=== PATIENT | female | born 1955 | race Caucasian/White ===

== ENCOUNTER 2017-01-25 16:43 | Inpatient (IN) | payer BC ==
--- NOTE | ~2017-01-25 | CN ---
Consultation Report [facility] [address] [place]. [address] NAME: SHANE CALVIN : 57 STATUS : ADM IN PAT#: [id number] AGE: 61 ADM/REG DATE : 01/25/17 MR#: [id number] REPORT SERV DATE: 01/26/17 DICTATED BY: VINNY FIGUEROA DATE: 01/26/17 REPORT STATUS : Draft TRANSCRIBED BY: MODL DATE: 01/26/17 SURGICAL CONSULTATION DATE OF CONSULTATION: 01/26/2017 REQUESTING PHYSICIAN: Hospitalist Service/Blair De Luna M.D. CONSULTING PHYSICIAN: Vinny Figueroa M.D. REASON FOR REQUEST: Assistance with Crohn's enteritis. HISTORY: This is a 61-year-old white female, with a recent presumptive diagnosis of Crohn's ileitis. For about five to six months, she has had increasing problems with digestion, that is evidenced by bloating, distention, and small vomiting episodes. She has modified her diet significantly to small quantities of bland foods. She subsequently lost approximately 30 pounds. Over this time, she has been managed and evaluated by Dr. De Luna, with imaging studies in fact in August of 2016, she had a colonoscopy. Dr. De Luna could not pass the stricture at the ileocecal valve, due to narrowing. Biopsies did not show inflammatory bowel disease. Blood panel for IBD was inconclusive. Although, because of this, she was started on Crohn's therapy. She has had CT scanning that showed a narrowing segment of the ileocecal area with mild distention. The patient last week was started on Humira as an induction dose by Dr. De Luna, but then she became worse with increasing abdominal pain and vomiting. She called Dr. De Luna's office and was told to come to the ED. A CT scan without contrast showed small bowel obstruction, probably due to the locally inflamed segment of small bowel. While hospitalized, she has been seen by Hospitalist Service and Dr. De Luna's service and the decision was made to go with high-dose IV steroids consisting of Solu-Medrol and just proceed with MR enterography. PHYSICAL EXAMINATION: GENERAL: The patient is alert, and conversant. ABDOMEN: The abdomen shows neip-[id number] distention with some mild discomfort to palpation, but no real guarding or peritonitis. She has well-healed cholecystectomy scars. No evidence of abdominal wall hernia. IMPRESSION: Partial recurrent small bowel obstruction, secondary to Crohn's enteritis, with probable stricturing, and stenosis of the ileocecal region. PLAN: I agree with aggressive medical management at this time and continuing evaluation with CT enterography. Also, I agree with the IV Solu-Medrol. If she does not respond adequately to medical and nonsurgical management. She may require resection of the strictured segment at some point in the future. Consultation Report [address] [place]. [address] NAME: SHANE CALVIN SAMPLES : 56 STATUS : ADM IN PAT#: [id number] AGE: 61 ADM/REG DATE : 01/25/17 MR#: [id number] REPORT SERV DATE: 01/26/17 DICTATED BY: VINNY FIGUEROA DATE: 01/26/17 REPORT STATUS : Draft TRANSCRIBED BY: JEROD DATE: 01/26/17 Thank very much for this consultation. REMY/JEROD Vinny Figueroa M.D. / [id number] CC: Cynthia Parra M.D.
--- NOTE | ~2017-01-25 | DS ---
Discharge Summary [facility] [address] [place]. [address] NAME: SHANE CALVIN : 57 STATUS : ADM IN [facility]#: [id number] AGE: 61 ADM/REG DATE : 01/25/17 MR#: [id number] REPORT SERV DATE: 02/01/17 DICTATED BY: CARMEN BILLS DATE: 02/01/17 REPORT STATUS : Draft TRANSCRIBED BY: MODL DATE: 02/01/17 ADMISSION DATE: 01/25/2017 DISCHARGE DATE: 02/01/2017 DIAGNOSES ON ADMISSION: 1. Crohn disease exacerbation, possible gastroparesis. 2. Acute kidney injury. 3. Hypokalemia. DIAGNOSES ON DISCHARGE: 1. Crohn disease exacerbation, currently resolved. 2. Nausea and vomiting, resolved. No evidence of gastroparesis. 3. Partial small-bowel obstruction, resolved with IV steroid treatment for Crohn disease. 4. Hypokalemia, resolved. 5. Mild acute kidney injury present on admission, resolved with IV fluid hydration. 6. Hypertension, controlled. 7. Mild C. diff diarrhea, currently improved. Doing very well. CONSULTANTS ON THE CASE: Clerical Proofreader Maksim, Dr. Cloud as well as General Surgery, Dr. Casas. IMAGING STUDIES: Done during this hospitalization: CT of the abdomen and pelvis without contrast done on 01/25/2017 showed small-bowel obstruction secondary to some locally inflamed bowel segment on image 125. May wish to consider an MRI enterography for definition of the inflamed segment. MRI abdomen enterography done on 01/27/2017 showed abnormal narrowed and thick-walled enhancing loops for mid jejunum consistent with involvement by Crohn disease involving approximately 20 cm of mid jejunum with small-bowel obstruction above this level. No additional lesions visualized. Trace fluid surrounding the dilated loop of bowel. X-ray KUB 01/29/2017, decreased intestinal gas compared to previous study. HISTORY OF PRESENT ILLNESS: Briefly, this is a very pleasant 61-year-old female with a past medical history of Crohn disease, presented with nausea, vomiting, abdominal pain, Crohn's exacerbation and was found to have small-bowel obstruction. For details, see history of present illness dictated by Dr. Parekh on 01/26/2017. HOSPITAL COURSE: Briefly, the patient was admitted to the hospital per Dr. Parekh and she was started on IV fluids, and General Surgery was consulted with a concern for the small-bowel obstruction as well as the patient was on antibiotics started per Dr. Parekh. The patient was found to have a narrowed bowel on the MRI enterography. See the results above. She was started on IV steroids per Maksim TAN and also her diet was slowly advanced. Discharge Summary [facility] [id number] [place]. [address] NAME: SHANE CALVIN : 57 STATUS : ADM IN PAT#: [id number] AGE: 61 ADM/REG DATE : 01/25/17 MR#: [id number] REPORT SERV DATE: 02/01/17 DICTATED BY: CARMEN BILLS DATE: 02/01/17 REPORT STATUS : Draft TRANSCRIBED BY: JEROD DATE: 02/01/17 The patient's small-bowel obstruction resolved on IV steroids. She is able to tolerate food and drink. There was a question if she needs to have surgery for her Crohn disease, but she also developed during this hospitalization mild C. diff diarrhea, which should be treated before she will be evaluated by Dr. Casas again if she needs surgery. Right now, her diarrhea improved. She does not have any significant diarrhea. She does not have any abdominal pain. No nausea and no vomiting. Her hypokalemia resolved. Her potassium, in the normal range for the last three days, without any replacement, and potassium level today is 4.1, doing well. She was recommended to be discharged per Gastroenterology and per Dr. Casas and per ct. She will follow up with her primary care physician, Dr. Rapp in a week, and she can check her potassium level with Dr. Angel Rapp as well. As well as she will follow up with Dr. De Luna, blacksmith assistant in four weeks and with Dr. Casas in two weeks. She is given prescription for vancomycin 125 mg p.o. four times daily for two weeks, as well as a prescription for tapering course of prednisone per Maksim, nurse practitioner of blacksmith assistant Dr. De Luna. She will take 40 mg daily for seven days. Then, 20 mg daily for seven days. Then, she will take 40 mg p.o. daily for seven days. Then, she will take 20 mg daily for seven days. Then, she will take 10 mg daily for seven days. Then, she will take 10 mg p.o. every other day for seven days according to the prescription, as well as vancomycin 125 p.o. four times daily for two weeks. She was recommended to increase her Norvasc to 10 mg a day while she is on steroids. Aspirin 81 mg daily, lisinopril 40 mg daily, mesalamine 1000 mg three times a day. Patient to stop Protonix. Patient to stop Humira. Continue her Zofran as needed for nausea and hyoscyamine 0.25 p.o. q.4 hours p.r.n. for abdominal cramps. Patient was discharged in stable condition. Every question was answered to the patient. I spent 45 minutes on discharge. MG/MODL Carmen Bills M.D. / [id number] CC: Cynthia Parra M.D. James Scott Manton, M.D. Walter Rose, M.D.
--- NOTE | ~2017-01-25 | HP ---
History And Physical [facility] [id number] [facility] [place]. [address] NAME: SHANE CALVIN : 57 STATUS : ADM IN PAT#: [id number] AGE: 61 ADM/REG DATE : 01/25/17 MR#: [id number] REPORT SERV DATE: 01/26/17 DICTATED BY: JENIFFER ONTIVEROS DATE: 01/25/17 REPORT STATUS : Draft TRANSCRIBED BY: MODL DATE: 01/25/17 DATE OF ADMISSION: 01/25/2017 CHIEF COMPLAINT: A 61-year-old female with presumptive Crohn's disease, now on steroids, Pentasa, and Humira, but presenting with increasing abdominal pain and vomiting. HISTORY OF PRESENTING ILLNESS: The patient's history was obtained through careful interview with the patient and sister coupled with review of [facility] medical records. The patient has had a very poor clinical course since about 09/09 when she had lost a total of 30 pounds. Her main complaints have been abdominal pain and vomiting. She has been given a presumptive diagnosis of Crohn's disease because it runs in her family, but she has been told that she has "negative" bowel biopsies and was also told she had "negative" antibodies? But just a week ago, she had Humira added to her chronic Pentasa and steroids. For two weeks prior to initiation of Humira, the patient was out on Augmentin. But over these last days eight or nine days, she has been having worsening illness with intractable nausea, vomiting, and abdominal pain. She describes her abdominal pain as epigastric area without too much radiation, a "squeezing" discomfort, 7/10 severity. No bright red blood per rectum. No melena. She has had slight diarrhea. She has subjective fevers, chills, and night sweats, a measured temperature up to 99.8. Often when she eats food, she has a postprandial "knot" in her upper abdomen as if the food is not moving through her stomach as she describes it. No lightheadedness. No shortness of breath. No chest pain. REVIEW OF SYSTEMS: Otherwise, a 14-point review of systems was obtained and was negative. PAST MEDICAL HISTORY: 1. Presumptive Crohn's disease, followed by Dr. De Luna. 2. Diabetes, off medications now. 3. Hypertension. 4. Elevated cholesterol. 5. E coli bacteremia in 2016. PAST SURGICAL HISTORY: History And Physical [facility] [address] [facility] [place]. [address] NAME: SHANE CALVIN : 57 STATUS : ADM IN PAT#: [id number] AGE: 61 ADM/REG DATE : 01/25/17 MR#: [id number] REPORT SERV DATE: 01/26/17 DICTATED BY: JENIFFER ONTIVEROS DATE: 01/25/17 REPORT STATUS : Draft TRANSCRIBED BY: JEROD DATE: 01/25/[address] Casas. 2. . ALLERGIES: SULFA, FLUOROQUINOLONES, ALDARA. SOCIAL HISTORY: No tobacco abuse. Occasional alcohol use. Lives in [place], [place]. Lives alone, but has a sister, who lives close, and two children, one lives locally and another child lives in [place], [place]. FAMILY HISTORY: Son with Crohn's disease. A strong family history of diabetes and heart disease. CURRENT MEDICATIONS: Include Humira, first dose one week ago; Norvasc 5 mg p.o. daily; aspirin 81 mg p.o. daily; Entocort 9 mg p.o. daily; Anaspaz 0.125 mg p.o. q.4 hours p.r.n.; lisinopril 40 mg p.o. daily; Pentasa 1000 mg p.o. t.i.d.; Zofran p.r.n.; Protonix 40 mg p.o. daily. PHYSICAL EXAMINATION: VITAL SIGNS: Temperature 98.9, pulse 101, blood pressure 114/60, respiratory rate 16, O2 saturation 99% on room air. GENERAL: Pleasant, cooperative female. She is not in very much distress right now. Her main complaint is nausea. HEENT: Pupils equal, round, and reactive to light. No conjunctival pallor. No scleral icterus. Nares are patent. Oropharynx is clear of obstruction. Very dry mucous membranes. NECK: Trachea midline. No thyromegaly. LYMPH: No cervical lymphadenopathy. No supraclavicular lymphadenopathy. No inguinal lymphadenopathy. RESPIRATORY: Clear to auscultation at bases. No wheezes, rales, or rhonchi. Normal respiratory effort. CARDIOVASCULAR: Tachycardic, regular rhythm. No murmurs, rubs, or gallops. No extremity edema is appreciated. ABDOMEN: Significant epigastric abdominal pain, but no guarding, no rebound. Nontender elsewhere. Nondistended. No hepatosplenomegaly. DERMATOLOGICAL: Warm and dry extremities. No pallor, no cyanosis. PSYCHIATRIC: Normal affect. Good mood. Alert and oriented x3. LABORATORY DATA: White blood cell count 9.3, hemoglobin 15, hematocrit 43, platelets 522. Sodium 132, potassium 2.8, chloride 86, bicarb 32, BUN 18, creatinine 1.45 from baseline creatinine of 0.68, glucose 112, lipase 45. Urinalysis negative for infection. STUDIES: CT scan of the abdomen is pending at the time of dictation. ASSESSMENT AND PLAN: 1. Crohn's exacerbation. Presumptive diagnosis, but states that she has a history of "negative" biopsies and also some kind of "negative" antibody screen? We will try IV Zosyn (has a quinolone allergy). We will obtain a GI consult with Dr. De Luna and check a CT scan of the abdomen and pelvis. History And Physical [address] [address] NAME: SHANE CALVIN SAMPLES : 56 STATUS : ADM IN PAT#: [id number] AGE: 61 ADM/REG DATE : 01/25/17 MR#: [id number] REPORT SERV DATE: 01/26/17 DICTATED BY: JENIFFER ONTIVEROS DATE: 01/25/17 REPORT STATUS : Draft TRANSCRIBED BY: MODL DATE: 01/25/17 2. Suspected gastroparesis. We will check a gastric emptying study to confirm. 3. Acute kidney injury. Place on IV fluids. 4. Hypokalemia. Replace potassium. Check magnesium. 5. A 30-pound weight loss since 08/2016. Check prealbumin. KPL/MODL Jeniffer Ontiveros M.D. / [id number] CC: Cynthia Poon M.D. James Scott Manton, M.D.
--- NOTE | ~2017-01-25 | CN ---
Consultation Report [facility] [address] [place]. [address] NAME: SHANE TIRADO SAMPLES : 56 STATUS : ADM IN PAT#: [id number] AGE: 61 ADM/REG DATE : 01/25/17 MR#: [id number] REPORT SERV DATE: 01/26/17 DICTATED BY: CAMPBELL WESTBROOK DATE: 01/26/17 REPORT STATUS : Draft TRANSCRIBED BY: MODL DATE: 01/26/17 GI CONSULTATION DATE OF CONSULTATION: 01/26/2017 REASON FOR CONSULTATION: Evaluation and management of abdominal pain, history of Crohn's, small-bowel obstruction. HISTORY OF PRESENT ILLNESS: Ms. Tirado is a 61-year-old female patient, who is known to Dr. Jamarcus De Luna in the outpatient setting with a notable recent diagnosis of Crohn's disease. Previously, she was treated with mesalamine products, but has recently within the last week begun on Humira. She is also being maintained on Entocort. She states that she has been having increased abdominal bloating, distention, pain as well as vomiting since the previous Wednesday. She called the office yesterday and was directed to come to the emergency room. On admission, she had a CT scan without contrast, showing small-bowel obstruction secondary to a locally inflamed bowel segment. She has a son who has Crohn's. She was seen by Dr. De Luna in August with colonoscopy being done. On endoscopy in August, she had what appeared to be a stricture at the ileocecal valve. He attempted several times to get into the ileocecal valve, but due to narrowing, he was unable to do so. He did biopsy of the ileocecal valve, which did not come back indicative of inflammatory bowel disease. She also had some few aphthous ulcers noted in the sigmoid colon. She had inflammatory bowel disease panel, which was inconclusive. However, secondary to medical history and presentation, she was started on Crohn's therapy. She states that she really has not felt well since August. She has had periods where she has felt somewhat back to baseline, but typically, she has recurrence of her symptoms. I have discussed with her presently we will obtain MRI small-bowel enterography. Dr. Vinny Casas has already been consulted to see her for further evaluation, and we will start her on IV steroids at this point in time. PAST MEDICAL HISTORY: Positive for Crohn's disease, diabetes, hypertension, elevated cholesterol, E coli bacteremia, antritis. PAST SURGICAL HISTORY: and cholecystectomy. ALLERGIES: SULFA, FLUOROQUINOLONES, AND ALDARA. SOCIAL HISTORY: Occasional alcohol. Denies tobacco. No illicits. FAMILY HISTORY: Positive for son with Crohn's disease. CURRENT MEDICATIONS: Humira, she had her induction dose last week; Norvasc; aspirin; Entocort, Anaspaz, lisinopril, Pentasa, Zofran, Protonix. REVIEW OF SYSTEMS: Consultation Report [facility] [id number] [facility] [place]. [address] NAME: SHANE TIRADO SAMPLES : 57 STATUS : ADM IN PAT#: [id number] AGE: 61 ADM/REG DATE : 01/25/17 MR#: [id number] REPORT SERV DATE: 01/26/17 DICTATED BY: CAMPBELL WESTBROOK DATE: 01/26/17 REPORT STATUS : Draft TRANSCRIBED BY: JEROD DATE: 01/26/17 A 10-point review of systems has been obtained with pertinent positives being addressed in the history of present illness. PERTINENT LABORATORY DATA: Sodium 137, potassium 2.8, BUN is 11, creatinine is 0.72. White count 7, hemoglobin 12.1, hematocrit 37.3, platelet count 433. INR of 1.3. Prealbumin 13.4. C-reactive protein 3. Sedimentation rate 8. PHYSICAL EXAMINATION: VITAL SIGNS: Temperature 98.6, pulse 80, respirations 18, and blood pressure 172/54. NEURO: Reveals an alert female, resting in bed with no obvious focal deficits. GENERAL: Cooperative, in no apparent distress. Awake, alert, and oriented x3. HEAD, EARS, EYES, NOSE, AND THROAT: Anicteric. Pupils equal, round, reactive to light and accommodation. Normocephalic and atraumatic. NECK: No JVD. No palpable nodes. LUNGS: Clear anteriorly with normal respiratory effort exhibited. Equal expansion. CARDIOVASCULAR SYSTEM: Regular rate and rhythm. ABDOMEN: Distended slightly with hypoactive to tympanic bowel sounds. Mild tenderness to palpation in the periumbilical region without rebound or guarding. EXTREMITIES: No edema. Normal distal pulses. SKIN: Warm, dry, and intact. ASSESSMENT: 1. Small-bowel obstruction. 2. Crohn's disease, recently started on Humira. 3. Abdominal pain secondary to small-bowel obstruction and Crohn's disease. 4. Nausea and vomiting secondary to small-bowel obstruction and Crohn's disease. 5. Weight loss with moderate protein-calorie malnutrition. 6. Hypokalemia. PLAN: 1. We will plan small-bowel MRI enterography today. 2. We will check sed rate and CRP. 3. Discontinue budesonide. Begin IV Solu-Medrol. Change her PPI to IV. 4. Agree with surgical evaluation and 5 a.m. labs. We will follow. ANIL/JEROD HELENA Lee / [id number] Consultation Report [address] [address] NAME: SHANE TIRADO SAMPLES : 56 STATUS : ADM IN PAT#: [id number] AGE: 61 ADM/REG DATE : 01/25/17 MR#: [id number] REPORT SERV DATE: 01/26/17 DICTATED BY: CAMPBELL WESTBROOK DATE: 01/26/17 REPORT STATUS : Draft TRANSCRIBED BY: JEROD DATE: 01/26/17 CC: Cynthia Parra M.D.
[2017-01-25 13:41] LABS: BASOPHILS 0.2 %; BASOPHILS ABSOLUTE 0.02 10/3/uL (0.0-0.16); EOSINOPHILS 0.3 %; EOSINOPHILS ABSOLUTE 0.03 10/3/uL (0.0-0.53); ER CBC TAT 0 Hrs 08 Mins; HEMOGLOBIN 14.6 g/dL (12.0-16.0); IMMATURE GRANULOCYTES 0.4 %; IMMATURE GRANULOCYTES ABSOLUTE 0.04 10/3/uL (0.0-0.11); LYMPHOCYTES 31.3 %; LYMPHOCYTES ABSOLUTE 2.92 10/3/uL (0.67-4.30); MEAN CORPUSCULAR HEMOGLOB 27.2 pg (26.0-34.0); MEAN CORPUSCULAR VOLUME 79.9 fL (80-100); MEAN PLATELET VOLUME 8.7 fL (9.2-13.0); MONOCYTES 12.1 %; MONOCYTES ABSOLUTE 1.13 10/3/uL (0.21-1.20); NEUTROPHILS 55.7 %; PLATELET COUNT 522 10/3/uL (150-400); RBC DISTRIBUTION WIDTH 13.6 % (12.0-16.0); RED CELL COUNT 5.36 10/6/uL (4.0-5.6); WHITE BLOOD CELLS 9.3 10/3/uL (4.5-10.5)
[2017-01-25 13:42] LABS: HEMATOCRIT 42.8 % (36.0-48.0); MANUAL DIFF NO %; MEAN CORPUS HGB CONC 34.1 g/dL (32.0-36.0)
[2017-01-25 13:53] LABS: A/G RATIO 0.9 (0.7-1.9); ALBUMIN 3.5 G/DL (3.5-5.0); CALCIUM, SERUM 9.5 MG/DL (8.5-10.4); CO2 (CARBON DIOXIDE) 32 MMOL/L (24-34); GLOBULIN 3.8 G/DL (2.5-4.1); GLUCOSE, SERUM 112 MG/DL (60-99); SGOT(AST) 23 U/L (5-40); SGPT(ALT) 19 U/L (5-65); SODIUM, SERUM 132 MMOL/L (135-148); TOTAL PROTEIN 7.3 G/DL (6.0-8.5)
[2017-01-25 13:55] LABS: CHLORIDE, SERUM 86 MMOL/L (96-112); POTASSIUM, SERUM 2.8 MMOL/L (3.5-5.3)
[2017-01-25 13:56] LABS: ALKALINE PHOSPHATASE 121 U/L (45-117); BUN (BLOOD UREA NITROGEN) 18 MG/DL (6-23); CREATININE 1.45 MG/DL (0.55-1.02); GFR AFRICAN AMERICAN 45 ML/MIN (>=60); GFR NON AFRICAN AMERICAN 39 ML/MIN (>=60)
[2017-01-25 15:10] LABS: ASCORBIC ACID (UR NOT ORDER) NEG (NEG); BILIRUBIN, URINE NEGATIVE (NEG); ER URINALYSIS TAT 0 Hrs 11 Mins; KETONE, URINE 20 MG/DL (NEG); LEUKOCYTE ESTERASE(NOT OR NEG (NEG); NITRITE (URINE) NEG (NEG); WBC (NOT ORDERED) (RFLEX) 2 (0-5)
[~2017-01-25 16:43] MED LIST: ANASPAZ0.125 MG PO; ASAB PO; CALTRA600D PO; CRESTOR10 PO; FLAG500TAB PO; GLUCPH8 PO; IBU-200200 MG PO; KLOR-CON 1010 MEQ PO; LEVAQUIN750 MG PO; LISINOPRIL40 MG PO; MULTIVIT/MIN; NORV5 PO; PR25 PO; PROTONIX PO; VITAMIN D31000 UNIT PO; ZESTORETIC PO; ZOFRAN ODT4 MG PO; [UNRECOGNIZED DRUG - OTHER] PO
[2017-01-25] MEDS ORDERED: NORV5 PO (18:25)
[2017-01-25] MEDS ORDERED: LISINOPRIL40 MG PO (18:25)
[2017-01-25] MEDS ORDERED: PENTASA500 MG PO (18:26)
[2017-01-25] MEDS ORDERED: ENTOCORT3 PO (18:26)
[2017-01-25] MEDS ORDERED: ASAB PO (18:26)
[2017-01-25] MEDS ORDERED: PROTONIX PO (18:27)
[2017-01-25] MEDS ORDERED: HUMIRA PEN SC (18:28)
[2017-01-25] MEDS ORDERED: ZOFRAN4 PO (18:29)
[2017-01-25] MEDS ORDERED: ANASPAZ0.125 MG PO (18:29)
[2017-01-25 22:43] LABS: POTASSIUM, SERUM 3.2 MMOL/L (3.5-5.3)
[2017-01-26 06:09] LABS: BASOPHILS 0.3 %; BASOPHILS ABSOLUTE 0.02 10/3/uL (0.0-0.16); EOSINOPHILS 1.7 %; EOSINOPHILS ABSOLUTE 0.12 10/3/uL (0.0-0.53); HEMOGLOBIN 12.1 g/dL (12.0-16.0); IMMATURE GRANULOCYTES 0.4 %; IMMATURE GRANULOCYTES ABSOLUTE 0.03 10/3/uL (0.0-0.11); LYMPHOCYTES ABSOLUTE 3.07 10/3/uL (0.67-4.30); MEAN CORPUS HGB CONC 32.4 g/dL (32.0-36.0); MEAN CORPUSCULAR HEMOGLOB 26.8 pg (26.0-34.0); MEAN PLATELET VOLUME 8.9 fL (9.2-13.0); MONOCYTES 11.6 %; MONOCYTES ABSOLUTE 0.81 10/3/uL (0.21-1.20); NEUTROPHILS ABSOLUTE 2.92 10/3/uL (2.02-8.40); PLATELET COUNT 433 10/3/uL (150-400); RBC DISTRIBUTION WIDTH 13.8 % (12.0-16.0); RED CELL COUNT 4.52 10/6/uL (4.0-5.6)
[2017-01-26 06:10] LABS: HEMATOCRIT 37.3 % (36.0-48.0); MANUAL DIFF NO %; MEAN CORPUSCULAR VOLUME 82.5 fL (80-100)
[2017-01-26 06:14] LABS: INTERNATIONAL NORMAL RATI 1.3 UNITS (-); PROTIME (NOT ORD) 15.7 SEC (12.0-14.5)
[2017-01-26 06:35] LABS: PREALBUMIN 13.4 MG/DL (17.0-43.0)
[2017-01-26 06:37] LABS: ALBUMIN 2.7 G/DL (3.5-5.0); ALKALINE PHOSPHATASE 82 U/L (45-117); BUN (BLOOD UREA NITROGEN) 11 MG/DL (6-23); CALCIUM, SERUM 8.1 MG/DL (8.5-10.4); CHLORIDE, SERUM 97 MMOL/L (96-112); CO2 (CARBON DIOXIDE) 28 MMOL/L (24-34); CREATININE 0.72 MG/DL (0.55-1.02); GFR AFRICAN AMERICAN 105 ML/MIN (>=60); GFR NON AFRICAN AMERICAN 91 ML/MIN (>=60); GLOBULIN 2.7 G/DL (2.5-4.1); GLUCOSE, SERUM 98 MG/DL (60-99); POTASSIUM, SERUM 2.8 MMOL/L (3.5-5.3); SGOT(AST) 20 U/L (5-40); SGPT(ALT) 14 U/L (5-65); SODIUM, SERUM 137 MMOL/L (135-148); TOTAL BILIRUBIN 1.1 MG/DL (0-1.2); TOTAL PROTEIN 5.4 G/DL (6.0-8.5)
[2017-01-26 06:53] LABS: SED RATE 8 MM/HR (0-20)
[2017-01-27 06:17] LABS: BASOPHILS 0.3 %; BASOPHILS ABSOLUTE 0.01 10/3/uL (0.0-0.16); EOSINOPHILS 0 %; HEMOGLOBIN 10.8 g/dL (12.0-16.0); IMMATURE GRANULOCYTES 0.8 %; IMMATURE GRANULOCYTES ABSOLUTE 0.03 10/3/uL (0.0-0.11); LYMPHOCYTES 29.1 %; LYMPHOCYTES ABSOLUTE 1.15 10/3/uL (0.67-4.30); MEAN CORPUS HGB CONC 32.7 g/dL (32.0-36.0); MEAN CORPUSCULAR HEMOGLOB 27.1 pg (26.0-34.0); MEAN CORPUSCULAR VOLUME 82.9 fL (80-100); MONOCYTES 7.1 %; MONOCYTES ABSOLUTE 0.28 10/3/uL (0.21-1.20); NEUTROPHILS 62.7 %; NEUTROPHILS ABSOLUTE 2.48 10/3/uL (2.02-8.40); PLATELET COUNT 365 10/3/uL (150-400); RBC DISTRIBUTION WIDTH 13.5 % (12.0-16.0); RED CELL COUNT 3.98 10/6/uL (4.0-5.6)
[2017-01-27 06:18] LABS: MANUAL DIFF NO %
[2017-01-27 06:28] LABS: BUN (BLOOD UREA NITROGEN) 13 MG/DL (6-23); CALCIUM, SERUM 7.7 MG/DL (8.5-10.4); CHLORIDE, SERUM 105 MMOL/L (96-112); CO2 (CARBON DIOXIDE) 23 MMOL/L (24-34); GFR AFRICAN AMERICAN 115 ML/MIN (>=60); GFR NON AFRICAN AMERICAN 99 ML/MIN (>=60); GLUCOSE, SERUM 140 MG/DL (60-99); POTASSIUM, SERUM 3.9 MMOL/L (3.5-5.3); SODIUM, SERUM 139 MMOL/L (135-148)
[2017-01-28 05:25] LABS: BASOPHILS 0.5 %; BASOPHILS ABSOLUTE 0.02 10/3/uL (0.0-0.16); EOSINOPHILS 0 %; HEMATOCRIT 33.1 % (36.0-48.0); HEMOGLOBIN 10.3 g/dL (12.0-16.0); IMMATURE GRANULOCYTES 1.6 %; IMMATURE GRANULOCYTES ABSOLUTE 0.06 10/3/uL (0.0-0.11); LYMPHOCYTES ABSOLUTE 0.78 10/3/uL (0.67-4.30); MEAN CORPUS HGB CONC 31.1 g/dL (32.0-36.0); MEAN CORPUSCULAR HEMOGLOB 26.5 pg (26.0-34.0); MEAN CORPUSCULAR VOLUME 85.1 fL (80-100); MEAN PLATELET VOLUME 8.5 fL (9.2-13.0); MONOCYTES 7.5 %; MONOCYTES ABSOLUTE 0.28 10/3/uL (0.21-1.20); NEUTROPHILS 69.4 %; NEUTROPHILS ABSOLUTE 2.58 10/3/uL (2.02-8.40); PLATELET COUNT 315 10/3/uL (150-400); RBC DISTRIBUTION WIDTH 13.8 % (12.0-16.0); RED CELL COUNT 3.89 10/6/uL (4.0-5.6); WHITE BLOOD CELLS 3.7 10/3/uL (4.5-10.5)
[2017-01-28 05:52] LABS: CALCIUM, SERUM 8.1 MG/DL (8.5-10.4); CHLORIDE, SERUM 109 MMOL/L (96-112); CO2 (CARBON DIOXIDE) 21 MMOL/L (24-34); CREATININE 0.58 MG/DL (0.55-1.02); GFR AFRICAN AMERICAN 116 ML/MIN (>=60); GFR NON AFRICAN AMERICAN 100 ML/MIN (>=60); GLUCOSE, SERUM 161 MG/DL (60-99); POTASSIUM, SERUM 4.5 MMOL/L (3.5-5.3); SODIUM, SERUM 139 MMOL/L (135-148)
[2017-01-28 05:54] LABS: MANUAL DIFF NO %
[2017-01-28 05:55] LABS: BUN (BLOOD UREA NITROGEN) 9 MG/DL (6-23)
[2017-01-29 05:21] LABS: BASOPHILS 0.2 %; BASOPHILS ABSOLUTE 0.01 10/3/uL (0.0-0.16); EOSINOPHILS 0 %; HEMATOCRIT 34.7 % (36.0-48.0); HEMOGLOBIN 11.5 g/dL (12.0-16.0); IMMATURE GRANULOCYTES 2.2 %; IMMATURE GRANULOCYTES ABSOLUTE 0.13 10/3/uL (0.0-0.11); LYMPHOCYTES 18.1 %; LYMPHOCYTES ABSOLUTE 1.05 10/3/uL (0.67-4.30); MEAN CORPUSCULAR HEMOGLOB 27.3 pg (26.0-34.0); MEAN PLATELET VOLUME 8.6 fL (9.2-13.0); MONOCYTES 7.9 %; MONOCYTES ABSOLUTE 0.46 10/3/uL (0.21-1.20); NEUTROPHILS 71.6 %; NEUTROPHILS ABSOLUTE 4.16 10/3/uL (2.02-8.40); PLATELET COUNT 357 10/3/uL (150-400); RBC DISTRIBUTION WIDTH 13.7 % (12.0-16.0); RED CELL COUNT 4.21 10/6/uL (4.0-5.6)
[2017-01-29 05:24] LABS: MANUAL DIFF NO %; MEAN CORPUS HGB CONC 33.1 g/dL (32.0-36.0); MEAN CORPUSCULAR VOLUME 82.4 fL (80-100); WHITE BLOOD CELLS 5.8 10/3/uL (4.5-10.5)
[2017-01-29 05:31] LABS: BUN (BLOOD UREA NITROGEN) 6 MG/DL (6-23); CALCIUM, SERUM 8.6 MG/DL (8.5-10.4); CHLORIDE, SERUM 104 MMOL/L (96-112); CREATININE 0.62 MG/DL (0.55-1.02); GFR AFRICAN AMERICAN 114 ML/MIN (>=60); GFR NON AFRICAN AMERICAN 98 ML/MIN (>=60); GLUCOSE, SERUM 175 MG/DL (60-99); POTASSIUM, SERUM 3.9 MMOL/L (3.5-5.3); SODIUM, SERUM 142 MMOL/L (135-148)
[2017-01-29 05:35] LABS: CO2 (CARBON DIOXIDE) 29 MMOL/L (24-34)
[2017-01-30 07:20] LABS: HEMATOCRIT 35.9 % (36.0-48.0); HEMOGLOBIN 11.9 g/dL (12.0-16.0)
[2017-01-30 07:28] LABS: CALCIUM, SERUM 8.7 MG/DL (8.5-10.4); CHLORIDE, SERUM 104 MMOL/L (96-112); CO2 (CARBON DIOXIDE) 28 MMOL/L (24-34); CREATININE 0.57 MG/DL (0.55-1.02); GFR AFRICAN AMERICAN 117 ML/MIN (>=60); GFR NON AFRICAN AMERICAN 101 ML/MIN (>=60); POTASSIUM, SERUM 3.4 MMOL/L (3.5-5.3); SODIUM, SERUM 140 MMOL/L (135-148)
[2017-01-30 07:29] LABS: BUN (BLOOD UREA NITROGEN) 11 MG/DL (6-23); GLUCOSE, SERUM 121 MG/DL (60-99)
[2017-01-31 05:45] LABS: BUN (BLOOD UREA NITROGEN) 10 MG/DL (6-23); CALCIUM, SERUM 8.8 MG/DL (8.5-10.4); CHLORIDE, SERUM 103 MMOL/L (96-112); CO2 (CARBON DIOXIDE) 24 MMOL/L (24-34); CREATININE 0.61 MG/DL (0.55-1.02); GFR AFRICAN AMERICAN 114 ML/MIN (>=60); GFR NON AFRICAN AMERICAN 99 ML/MIN (>=60); SODIUM, SERUM 137 MMOL/L (135-148)
[2017-01-31 05:46] LABS: GLUCOSE, SERUM 164 MG/DL (60-99); POTASSIUM, SERUM 5.1 MMOL/L (3.5-5.3)
[2017-02-01 06:12] LABS: BUN (BLOOD UREA NITROGEN) 12 MG/DL (6-23); CALCIUM, SERUM 9.1 MG/DL (8.5-10.4); CHLORIDE, SERUM 101 MMOL/L (96-112); CO2 (CARBON DIOXIDE) 29 MMOL/L (24-34); CREATININE 0.63 MG/DL (0.55-1.02); GFR AFRICAN AMERICAN 113 ML/MIN (>=60); GFR NON AFRICAN AMERICAN 97 ML/MIN (>=60); GLUCOSE, SERUM 105 MG/DL (60-99); POTASSIUM, SERUM 4.1 MMOL/L (3.5-5.3); SODIUM, SERUM 139 MMOL/L (135-148)
[2017-02-01] MEDS ORDERED: P10 PO (15:36)
[2017-02-01] MEDS ORDERED: VANCOCIN HCL125 MG PO (15:42)
[2017-06-07] MEDS ORDERED: PRIN20 PO (12:56)
[2017-06-07] MEDS ORDERED: HYGROTON 25 MG25 MG PO (12:57)
[2017-06-07] MEDS ORDERED: VITD PO (12:58)
== END 2017-02-01 17:13 | disposition home or self-care (01) | DRG 386 ==
LOC: ER 16:43 → 5SO 19:59
PROVIDERS: Hospitalist; Nurse Practitioner Family; Physician Assistant; Specialist
DX: K50.012 Crohn's disease of small intestine with intestinal obstruction (principal); E44.0 Moderate protein-calorie malnutrition; A04.7 Enterocolitis due to Clostridium difficile; E11.22 Type 2 diabetes mellitus with diabetic chronic kidney disease; N18.3 Chronic kidney disease, stage 3 (moderate); I12.9 Hypertensive chronic kidney disease with stage 1 through stage 4 chronic kidney disease, or unspecified chronic kidney disease; E87.6 Hypokalemia; E78.00 Pure hypercholesterolemia, unspecified; Z79.899 Other long term (current) drug therapy; Z90.49 Acquired absence of other specified parts of digestive tract; Z98.890 Other specified postprocedural states; Z88.2 Allergy status to sulfonamides; Z88.8 Allergy status to other drugs, medicaments and biological substances; Z79.82 Long term (current) use of aspirin; Z53.09 Procedure and treatment not carried out because of other contraindication
CPT/HCPCS: 74020; 74176; 74183; 80048; 80053; 81001; 82150; 83690; 83735; 84132; 84134; 84443; 85014; 85018; 85025; 85610; 85652; 85730; 86140; 87493; 87493-59; 96374; 96375; 99285; A9270-GY; A9577; C9113; J1170; J1610; J2405; J2543; J2550; J2920

== ENCOUNTER 2017-02-08 21:32 | Inpatient (IN) | payer BC ==
--- NOTE | ~2017-02-08 | HP ---
History And Physical [address] [address] NAME: SHANE CALVIN : 57 STATUS : ADM IN PAT#: [id number] AGE: 61 ADM/REG DATE : 02/09/17 MR#: [id number] REPORT SERV DATE: 02/09/17 DICTATED BY: MARICRUZ KOHLI DATE: 02/09/17 REPORT STATUS : Draft TRANSCRIBED BY: MODL DATE: 02/09/17 DATE OF ADMISSION: 02/09/2017 CHIEF COMPLAINT: Abnormal lab results, dehydration. HISTORY OF PRESENT ILLNESS: The patient is a 61-year-old female with recent diagnosis of Crohn's disease, additionally C. diff colitis, currently in the middle of treatment, was recently discharged for Crohn's exacerbation, gastroparesis, BEKAH, hyperkalemia who comes in after being told, has been having slightly decreased p.o. intake, has been tolerating clears, occasional mashed potatoes and legs. She has been slightly weaker, went for labs approximately week ago which were normal but went to see her PCP, and was recommended to come in based on abnormal lab results. The patient aside from feeling slightly weak did not notice anything that was abnormal. The patient has not had any chest pain. No nausea, vomiting. No diarrhea. No fevers or chills. Symptoms were constant, mild severity of weakness. No pain radiating symptoms. Symptoms of weakness are worsened by activity, improved by rest, still currently present. She has had fairly good urine output per her thoughts. REVIEW OF SYSTEMS: A 10-point review of systems negative except for that noted in the HPI. PAST MEDICAL HISTORY: Crohn disease followed by Dr. De Luna, diabetes off medications, hypertension, hyperlipidemia, E. coli bacteremia in 2016, C. diff on current treatment. PAST SURGICAL HISTORY: Cholecystectomy, , anticipated partial colectomy for Crohn's. ALLERGIES: SULFA, FLUOROQUINOLONES, ALDARA. SOCIAL HISTORY: No tobacco, rare alcohol. Lives in [place], accompanied by sister, two children. One child has Crohn's himself. FAMILY HISTORY: Son with Crohn's and diabetes, and family history of diabetes and heart disease. ALLERGIES: SULFA, QUINOLONES, CIPRO, ALDARA. HOME MEDICATIONS: Norvasc, aspirin, Pepcid, Levsin, Prinivil, Pentasa, Zofran, Deltasone, and vancomycin p.o. PHYSICAL EXAMINATION: VITAL SIGNS: The patient's blood pressure 138/63, temperature 96.8, pulse 85, respirations 16, O2 sats 96%. GENERAL: No acute distress. Calm, pleasant, well developed, well nourished. EYES: No scleral icterus. EOMI. ENT: Nares patent. Dry mucous membranes. History And Physical [address] [address] NAME: SHANE CALVIN : 57 STATUS : ADM IN PAT#: [id number] AGE: 61 ADM/REG DATE : 02/09/17 MR#: [id number] REPORT SERV DATE: 02/09/17 DICTATED BY: MARICRUZ KOHLI DATE: 02/09/17 REPORT STATUS : Draft TRANSCRIBED BY: JEROD DATE: 02/09/17 RESPIRATORY: Clear to auscultation. No wheezes. CV: Regular rate. No rubs. No pedal edema. GI: Soft, nontender, and nondistended. Bowel sounds positive. : Deferred. MUSCULOSKELETAL: Moves all extremities x4. SKIN: Warm, dry. Very faint tenting. LYMPH: No cervical or supraclavicular lymphadenopathy. HEME: No bleeding or bruising. NEURO: Alert and oriented. Moves all extremities x4. PSYCH: Appropriate mood and affect. DATA: Urinalysis grossly within normal limits. Initial CMP; sodium 126, potassium 7.1, chloride 85, bicarb 23, BUN and creatinine 43 and 1.55, glucose of 161. LFTs within normal limits. A1c 6.9. CBC: WBC count 20.2, H and H 13.8 and 41.4, platelets 693. Repeat electrolytes; sodium 121, potassium 6.5, chloride 86, bicarb 25, BUN creatinine 45 and 1.47, glucose 175, magnesium 2.5, calcium 10. EKG is normal sinus rhythm, rate 77, QTc 407, no peaked T wave. ASSESSMENT AND PLAN: 1. Hyperkalemia. 2. Hyponatremia. 3. Acute kidney injury. 4. C. diff. 5. Leukocytosis. 6. Crohn's. PLAN: 1. For hyperkalemia, the patient was actually hypokalemic at most recent hospital stay. Calcium gluconate has already been given, insulin with D50. No peaked T wave currently. Stop lisinopril at this time and monitor clinically. The patient does not have any diarrhea. Serial BMPs and IV fluid resuscitation. The patient also volume depleted. 2. Hyponatremia. The patient clinically volume depleted. Serial monitoring, IV fluids with serial BMPs, seizure precautions. 3. BEKAH. The patient does have volume depletion as the patient has been on clear diet although the patient does report having fair urine output, likely due to acute C. diff infection, Crohn's flare, likely having difficulty keeping fluid balance, and in's and out's. 4. C. diff. Continue vancomycin p.o. 5. Leukocytosis, is currently on treatment for C. diff. No active diarrhea, likely increased leukocytosis from discharge secondary to steroids, currently on taper. 6. Crohn's. Continue taper. Schedule GI consult if any additional changes. All questions answered of the patient. We will continue to monitor. History And Physical [address] [address] NAME: SHANE CALVIN SAMPLES : 57 STATUS : ADM IN PAT#: [id number] AGE: 61 ADM/REG DATE : 02/09/17 MR#: [id number] REPORT SERV DATE: 02/09/17 DICTATED BY: MARICRUZ KOHLI DATE: 02/09/17 REPORT STATUS : Draft TRANSCRIBED BY: JEROD DATE: 02/09/17 DDN/JEROD Maricruz Kohli MD / [id number] CC: Cynthia Osborn M.D.
--- NOTE | ~2017-02-08 | DS ---
Discharge Summary [facility] [address] [place]. [address] NAME: SHANE CALVIN : 57 STATUS : DIS IN PAT#: [id number] AGE: 61 ADM/REG DATE : 02/09/17 MR#: [id number] REPORT SERV DATE: 02/20/17 DICTATED BY: JONATHAN GUNN DATE: 02/19/17 REPORT STATUS : Draft TRANSCRIBED BY: MODL DATE: 02/19/17 ADMISSION DATE: 02/09/2017 DISCHARGE DATE: 02/19/2017 DISCHARGE DIAGNOSES: 1. Crohn's exacerbation. 2. Recent Clostridium difficile. 3. Acute kidney injury with electrolyte disturbance. 4. Partial small bowel obstruction with a Crohn's stricture. 5. Type 2 diabetes mellitus. 6. Hypertension. 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 Vinny Casas. PROCEDURES: CT of the abdomen and pelvis done on 02/13/2017 showing a segment of abnormal activity, inflamed small bowel secondary to Crohn's. The patient has now developed a high grade small bowel obstruction since the MRI of 01/27/2017. Laparoscopic resection of the small bowel with terminal ileum, ileocecal valve, and the cecum, about [address] Casas. BRIEF HISTORY OF PRESENT ILLNESS: The patient is a 61-year-old female with recent C difficile colitis, came in with recurrent nausea and vomiting as well as abnormal electrolytes, so she was admitted. For detailed history and physical exam, please see note dictated by Dr. Jose Bardales on 02/09/2017. HOSPITAL COURSE: After being admitted to the hospital, this patient was cared for by Dr. Cardona. Please refer to interim summary dictated by Dr. Cardona on 02/14/2017. I took over this patient's care on 02/16/2017. This patient was status post laparoscopic resection of the distal small bowel. Postoperatively, this patient was doing well. She was on TPN over the next 48 hours. The patient was able to be weaned off her TPN. She was tolerating a regular diet. She had positive flatus. However, she did not have a bowel movement prior to discharge from the hospital. This was okayed by Surgery. This patient is tolerating diet. She is ambulating without any difficulty. She denies any abdominal pain, except from her surgical scars and she is well controlled on oral medications. GI had followed her and reduced her to prednisone of 10 mg every other day and it will be followed up in the outpatient setting. Her blood pressure has remained somewhat on the normal side, so at this time, we have recommended not taking any blood pressure medications and follow up with Dr. Rapp for further blood pressure evaluations and replacement of medication. On the day of discharge, her sodium is 142, her potassium is 3.6, her chloride is 108, her bicarbonate is 28, BUN is 12, creatinine is 0.46, and her serum glucose was 109 and her albumin was 2.0. She says she feels well enough and wants to go home and recover in the home setting. DISCHARGE DISPOSITION: Home. DISCHARGE ACTIVITY: As tolerated. Discharge Summary [address] [address] NAME: SHANE CALVIN : 57 STATUS : DIS IN PAT#: [id number] AGE: 61 ADM/REG DATE : 02/09/17 MR#: [id number] REPORT SERV DATE: 02/20/17 DICTATED BY: JONATHAN GUNN DATE: 02/19/17 REPORT STATUS : Draft TRANSCRIBED BY: JEROD DATE: 02/19/17 DISCHARGE DIET: GI soft. DISCHARGE MEDICATIONS: MiraLAX one packet with eight ounces of water daily. [place] 5/325 one tablet q.6h. p.r.n. for pain, #15 without refills given. Aspirin 81 mg once daily. Pepcid 10 mg twice daily p.r.n. Prednisone 10 mg once every other day through 02/22/2017. DISCHARGE FOLLOWUP: With Dr. Angel Rapp in one week. With Dr. Vinny Casas as previously scheduled by him. More than 30 minutes spent planning this patient's discharge, reconciling medications, writing prescriptions, discussing hospital care, and followup with the patient and documenting this discharge. ZHANE/JEROD Jonathan Gunn M.D. / [id number] CC: Cynthia Osborn M.D. Walter Rose, M.D. Daljit Cardona M.D.
--- NOTE | ~2017-02-08 | CN ---
Consultation Report [facility] [address] [place]. [address] NAME: SHANE TIRADO SAMPLES : 56 STATUS : ADM IN PAT#: [id number] AGE: 61 ADM/REG DATE : 02/09/17 MR#: [id number] REPORT SERV DATE: 02/09/17 DICTATED BY: CAMPBELL WESTBROOK DATE: 02/09/17 REPORT STATUS : Draft TRANSCRIBED BY: MODL DATE: 02/09/17 GI CONSULTATION DATE OF CONSULTATION: 02/09/2017 REASON FOR CONSULTATION: Evaluation and management of Crohn's disease. HISTORY OF PRESENT ILLNESS: Ms. Tirado is a very pleasant 61-year-old female patient, who is known to Dr. Jamarcus De Luna in the outpatient setting, who we recently saw in consultation from 01/26/2017, until discharge date of 02/01/2017. We saw her for abdominal pain and small bowel obstruction. She has a history of Crohn's disease, diagnosed recently by Dr. De Luna, was on mesalamine but recently had been started on Humira, however she came in for increasing abdominal bloating and distention and nausea with vomiting. CT scan was obtained showing a small bowel obstruction secondary to a locally inflamed segment of small bowel. She, while in the hospital, had a small-bowel enterography on 01/27/2017, which showed abnormal narrowed and thick-walled enhancing loops of mid jejunum consistent with involvement of Crohn's disease involving approximately 20 cm of the mid jejunum with small bowel obstruction above this level. No additional lesion was seen. She was started on IV steroids. Diet was progressed to full liquids with the addition of soft foods. She was subsequently discharged on 02/01/2017. Her Humira was going to be held but she was maintained on a prednisone taper. She was told to follow up with Dr. Casas on the , I believe, she said, for further evaluation of her surgical intervention. She states that since being home, she has felt tired at times but felt like she was doing good. She had been keeping a food diary with caloric intake of around 1500 mL. She states she was drinking 8 to 10 bottles of water per day as well as boost type products. She has seen her primary care physician, Dr. Rapp yesterday, who obtained just routine lab work which showed a low sodium as well as elevated potassium and directed her to come to [facility] for further evaluation. She denies any abdominal pain to me. She states that she has some intermittent distention but she has been having bowel movements. She has had very little nausea. She has been tolerating full liquids with soft foods. She is presently on 20 mg of prednisone taper. Stools have formed up but they were sent down today for C. difficile, which returned negative. White blood cells were negative. Culture sensitivities are pending and Giardia and Cryptosporidium were negative. I have discussed with her that we will obtain an abdominal x-ray as well as advance her diet. Her sodium is 132 with a potassium of 4.2. She has no complaints. She is asking that Dr. Casas be notified that she is here. PAST MEDICAL HISTORY: Positive for Crohn's disease, recently started on Humira, small-bowel obstruction, diabetes, hypertension, elevated cholesterol, E. coli bacteremia, and enteritis. PAST SURGICAL HISTORY: , cholecystectomy. ALLERGIES: ALLERGIES ARE TO SULFA, FLUOROQUINOLONES, AND ALDARA. Consultation Report [address] [address] NAME: SHANE TIRADO : 57 STATUS : ADM IN [facility]#: [id number] AGE: 61 ADM/REG DATE : 02/09/17 MR#: [id number] REPORT SERV DATE: 02/09/17 DICTATED BY: CAMPBELL WESTBROOK DATE: 02/09/17 REPORT STATUS : Draft TRANSCRIBED BY: JEROD DATE: 02/09/17 SOCIAL HISTORY: She denies alcohol, tobacco, or illicits. FAMILY HISTORY: Positive for son with Crohn's disease. CURRENT HOME MEDICATIONS: Consist of Norvasc; aspirin; Pepcid; Levsin; Proventil; Pentasa; Zofran; prednisone; and vancomycin. REVIEW OF SYSTEMS: A 10-point review of systems has been obtained with pertinent positives being addressed in the history of present illness. PHYSICAL EXAMINATION: VITAL SIGNS: Temperature is 98.7, pulse 75, respirations 18, and blood pressure 143/51. NEUROLOGIC: Reveals an alert, female, resting in bed with no focal deficits. GENERAL: Cooperative, in no apparent distress. Awake, alert, and oriented x3. HEAD, EARS, EYES, NOSE, AND THROAT: Anicteric. Pupils equal, round, and reactive to light and accommodation. Normocephalic and atraumatic. NECK: No JVD. No palpable nodes. LUNGS: Clear anteriorly with normal respiratory effort exhibited. Equal expansion. CARDIOVASCULAR SYSTEM: Regular rate and rhythm. ABDOMEN: Soft, nontender. No distention. She has hypoactive bowel sounds in all four quadrants. No organomegaly appreciated. EXTREMITIES: No edema. Normal distal pulses. SKIN: Warm, dry, and intact. PERTINENT LABS: Sodium 132, potassium 4.2, BUN is 23, creatinine 0.93. White count 14.8, hemoglobin 11.6, and hematocrit 34.3. ASSESSMENT AND PLAN: 1. History of Crohn's disease with a recent small bowel obstruction. 2. Clostridium difficile on vancomycin. 3. Hypokalemia. 4. Hyponatremia. 5. Acute kidney injury. PLAN: 1. Prednisone, continue at 20 mg at present. 2. Full liquid diet, mashed potatoes, eggs, macaroni, and cheese. 3. KUB. 4. Courtesy notify Dr. Casas. We will follow. DG/MODL Consultation Report [address] [place]. [address] NAME: SHANE TIRADO SAMPLES : 57 STATUS : ADM IN [facility]#: [id number] AGE: 61 ADM/REG DATE : 02/09/17 MR#: [id number] REPORT SERV DATE: 02/09/17 DICTATED BY: CAMPBELL WESTBROOK DATE: 02/09/17 REPORT STATUS : Draft TRANSCRIBED BY: JEROD DATE: 02/09/17 HELENA Lee / [id number] CC: Cynthia Delacruz M.D.
--- NOTE | ~2017-02-08 | IDS ---
Interim Discharge Summary [facility] [address] [place]. [address] NAME: SHANE CALVIN SAMPLES : 57 STATUS : ADM IN PAT#: [id number] AGE: 61 ADM/REG DATE : 02/09/17 MR#: [id number] REPORT SERV DATE: 02/14/17 DICTATED BY: MEGAN DARLING DATE: 02/14/17 REPORT STATUS : Draft TRANSCRIBED BY: MODL DATE: 02/14/17 ADMISSION DATE: 02/09/2017 DISCHARGE DATE: CURRENT HOSPITAL DIAGNOSES: 1. Recent hospitalization for Crohn's exacerbation and Clostridium difficile. 2. Acute kidney injury with electrolyte disturbance, resolved. 3. Partial small bowel obstruction, surgery planned for a.m. 4. Diabetes mellitus. 5. Hypertension. CONSULTATIONS: GI and Surgery. PROCEDURES: CT of the abdomen and pelvis done on 02/11/2017, showing segment of abnormal activity, inflamed small bowel, secondary to Crohn's. The patient has now developed a high- grade small bowel obstruction since the MRI on 01/27/2017. CURRENT PHYSICAL FINDINGS AND HISTORY OF PRESENT ILLNESS: Please see dictated H and P by Dr. Bardales. In brief, the patient presented on 02/09/2017, with recurrent symptoms of pain, nausea, or vomiting. She had recently discharged on 02/01/2017, with similar symptoms and had outpatient surgery scheduled pending her resolution of symptoms, and titrating down on her steroids, and treating her C. difficile. Vital signs at time of admission, BP was 138/63, temperature was 96.8 and she has had no significant temperature here. Pulse and respirations have been normal. LABORATORY DATA: Initially BMP was abnormal. Sodium was 126, potassium was 7.1, chloride was 85, CO2 was 23, BUN and creatinine were 43 and 1.5. However with appropriate treatment these numbers were rapidly corrected. A1c was 6.9. Initial CBC was white count 20,000 this normalized on 02/11/2017. Mild anemia. Most recent 11 and 33 H and H noted. Stool samples were re-requested. Culture was normal bebe. Shigella was negative. Giardia and crypto were negative and repeat C. difficile was negative. HOSPITAL COURSE: The patient was admitted. Home medications were reviewed and ordered appropriately. Her hyperkalemia was treated. GI was consulted. I saw her the following day, her IV fluids were discontinued, because her electrolytes had corrected. Her q.6 hour BMPs were discontinued and because of her hypertension her Norvasc was increased. GI requested a flat and upright the following day, noting the partial obstruction ileus. She then proceeded to the CT discern if it was related to her Crohn's or her previous symptoms, when this was noted it was an SBO. Dr. Casas was consulted. She was started on TPN. Her surgery was scheduled for Wednesday. She continued her p.o. vancomycin, and she tolerated decreasing steroids, and some mild p.o. intake. The patient has no other significant difficulties here and she is tentatively scheduled for surgery on Wednesday. TLF/MODL Interim Discharge Summary [address] [place]. [address] NAME: SHANE CALVIN : 57 STATUS : ADM IN PAT#: [id number] AGE: 61 ADM/REG DATE : 02/09/17 MR#: [id number] REPORT SERV DATE: 02/14/17 DICTATED BY: MEGAN DARLING DATE: 02/14/17 REPORT STATUS : Draft TRANSCRIBED BY: MODBharath DATE: 02/14/17 Megan Darling M.D. / [id number] CC: Cynthia Delacruz M.D.
--- NOTE | ~2017-02-08 | OP ---
Record Of Operation [facility] [address] [place]. [address] NAME: SHANE CALVIN : 57 STATUS : ADM IN PAT#: [id number] AGE: 61 ADM/REG DATE : 02/09/17 MR#: [id number] REPORT SERV DATE: 02/16/17 DICTATED BY: VINNY CASAS DATE: 02/16/17 REPORT STATUS : Draft TRANSCRIBED BY: MODL DATE: 02/16/17 DATE OF PROCEDURE: 02/15/2017 PREOPERATIVE DIAGNOSIS: Crohn's enteritis with involvement of the ileocecum and mid jejunum. POSTOPERATIVE DIAGNOSIS: Crohn's enteritis with involvement of the ileocecum only without evidence of any additional Crohn's enteritis. PROCEDURES: 1. Diagnostic laparoscopy. 2. Ileocolic resection with primary [id number] anastomosis. DESCRIPTION OF OPERATIVE PROCEDURE: The patient was brought to the operating suite, placed in supine position, underwent satisfactory general endotracheal anesthesia without incident. The skin of the abdomen was scrubbed, prepped, and draped in usual sterile fashion. 0.5% Marcaine with epinephrine was utilized as supplemental local anesthesia. Initially, an infraumbilical incision was performed dissecting through the skin and subcutaneous tissue. The umbilical fascia was grasped and elevated and a disposable Veress insufflation needle was inserted through the umbilical fascia into the peritoneal cavity. The intraperitoneal tip location was next ascertained using the saline hanging drop method following which CO2 was insufflated for pressures of 15 mmHg throughout the case. After adequate insufflation pressure achieved, the Veress needle was removed, and 10/11 trocar was placed through the umbilical fascia into the peritoneal cavity following which a rigid forward-viewing laparoscope was inserted. Visualization of the intraabdominal parietes revealed no evidence of injury from initial insufflation or puncture. An additional 5 mm trocar was placed in the supraumbilical midline under direct visualization. Then, using the blunt atraumatic grasper attempts were made to visualize the small bowel. Unfortunately, due to the chronic partial small-bowel obstruction, I was unable to see much of anything. There were multiple large distended sausage loops of small bowel precluding visualization and evaluation. Accordingly, I decided to terminate laparoscopy and then proceeded with allowing CO2 to egress from peritoneal cavity. A right lower quadrant Willy-Celestino type incision was performed through Albertoey's point dissecting through the skin and subcutaneous tissue, external oblique aponeurosis opened in the direction of its fibers likewise internal oblique and transverse abdominis musculature divided with cautery, and the incision was carried to the anterior and posterior rectus sheaths, which were divided. The rectus muscle on the right was left intact and not divided. Then, the peritoneal cavity was entered and the small bowel was eviscerated with ease due to its distention. The entire small bowel was run retrograde-antegrade and antegrade to retrograde looking diligently for any signs of Crohn's enteritis. There was actually no evidence of Crohn's enteritis except in the distal 1 foot or so of the terminal ileum just proximal to the ileocecal valve, where there were characteristic signs of Crohn's enteritis with some stricturing and "fat wrapping," but the remainder of the small bowel was pristine. Record Of Operation [facility] [address] [facility] [place]. [address] NAME: SHANE CALVIN : 57 STATUS : ADM IN PAT#: [id number] AGE: 61 ADM/REG DATE : 02/09/17 MR#: [id number] REPORT SERV DATE: 02/16/17 DICTATED BY: VINNY CASAS DATE: 02/16/17 REPORT STATUS : Draft TRANSCRIBED BY: JEROD DATE: 02/16/17 Ileocolic resection was performed by mobilizing the right colon from its retroperitoneal attachments and delivered it through the wound. Proximal distal transection was performed with YENNIFER 75 linear stapler, and then the mesentery was taken down by combination of Harmonic Scalpel as well as free ties of 2-0 Vicryl. The specimen was handed to Dr. Amezcua, the pathologist for permanent evaluation. Bowel continuity was reestablished and stapled in [id number] fashion anastomosing in the mesenteric portion of the distal ileum to the right or ascending colon. Stay sutures of 3-0 silk was placed in the mesenteric border line of the bowel. The previous created staple lines were divided and prior to the anastomosis, the small bowel was "milked" antegrade removing a lot of gas and small bowel contents to decompress the small bowel. The remaining linear YENNIFER 75 stapler was placed through the enterotomies created in the colon and small bowel, and the mesenteric borders were lined up. The stapler was closed and actuated completing a [id number] anastomosis. The enterotomy created for the insertion of the YENNIFER was approximated with stay sutures of 3-0 silk and a TA 60 device was used to seal the enterotomies. The anastomosis was palpated and found to be patent, and the mesentery was reapproximated in a running locking 2-0 Vicryl. The intestines were placed back in the peritoneal cavity. Copious irrigation was performed to clear. Hemostasis was assured. Posterior rectus sheath and transverse abdominis musculature closed with running locking 0 Vicryl. The internal oblique and anterior rectus sheath closed with multiple figure-of- eight sutures of 0 Vicryl. Subcutaneous tissue irrigated and closed with interrupted 3-0 Vicryl, running subcutaneous stitch 4-0 Vicryl for the skin. Likewise, the umbilicus was closed at the fascial level with [id number] suture of 0 Vicryl and then subcutaneous tissue at this and other trocar site with interrupted 3-0 Vicryl, running subcuticular stitch 4-0 Vicryl for the skin. Dermabond skin adhesive applied to all sites. The patient tolerated the procedure well and was returned to PACU in stable condition. At the termination of the procedure, sponge, needle, lap, and instrument counts were correct x3. ESTIMATED BLOOD LOSS: Less than 15 to 20 mL. WR/MODL Vinny Casas M.D. / [id number] CC: Jonathan Gunn M.D. Record Of Operation [address] [address] NAME: SHANE CALVIN : 57 STATUS : ADM IN [facility]#: [id number] AGE: 61 ADM/REG DATE : 02/09/17 MR#: [id number] REPORT SERV DATE: 02/16/17 DICTATED BY: VINNY CASAS DATE: 02/16/17 REPORT STATUS : Draft TRANSCRIBED BY: MODL DATE: 02/16/17 Angel Rapp M.D.
[~2017-02-08 21:32] MED LIST changes: +ENTOCORT3 PO; +HUMIRA PEN SC; +P10 PO; +PENTASA500 MG PO; +VANCOCIN HCL125 MG PO; +ZOFRAN4 PO
[2017-02-08 22:33] LABS: BUN (BLOOD UREA NITROGEN) 45 MG/DL (6-23); CHLORIDE, SERUM 86 MMOL/L (96-112); CO2 (CARBON DIOXIDE) 25 MMOL/L (24-34); CREATININE 1.47 MG/DL (0.55-1.02); GFR AFRICAN AMERICAN 45 ML/MIN (>=60); GFR NON AFRICAN AMERICAN 38 ML/MIN (>=60); GLUCOSE, SERUM 175 MG/DL (60-99); SODIUM, SERUM 121 MMOL/L (135-148)
[2017-02-08 22:39] LABS: POTASSIUM, SERUM 6.5 MMOL/L (3.5-5.3)
[2017-02-08 23:33] LABS: ASCORBIC ACID (UR NOT ORDER) NEG (NEG); BILIRUBIN, URINE NEGATIVE (NEG); ER URINALYSIS TAT 0 Hrs 00 Mins; KETONE, URINE NEGATIVE (NEG); LEUKOCYTE ESTERASE(NOT OR NEG (NEG); NITRITE (URINE) NEG (NEG); WBC (NOT ORDERED) (RFLEX) 0 (0-5)
[2017-02-09] MEDS ORDERED: NORV5 PO (00:48)
[2017-02-09] MEDS ORDERED: LISINOPRIL40 MG PO (00:51)
[2017-02-09] MEDS ORDERED: P10 PO (00:51)
[2017-02-09] MEDS ORDERED: VANCOCIN HCL125 MG PO (00:51)
[2017-02-09] MEDS ORDERED: ASAB PO (00:55)
[2017-02-09] MEDS ORDERED: LEVSINTAB PO (00:55)
[2017-02-09] MEDS ORDERED: PEP20 PO (00:55)
[2017-02-09] MEDS ORDERED: PENTASA500 MG PO (00:56)
[2017-02-09] MEDS ORDERED: ZOFRAN4 PO (00:56)
[2017-02-09 07:22] LABS: BASOPHILS 0.1 %; BASOPHILS ABSOLUTE 0.01 10/3/uL (0.0-0.16); EOSINOPHILS 0 %; HEMOGLOBIN 11.6 g/dL (12.0-16.0); IMMATURE GRANULOCYTES 0.6 %; IMMATURE GRANULOCYTES ABSOLUTE 0.09 10/3/uL (0.0-0.11); LYMPHOCYTES 14.3 %; LYMPHOCYTES ABSOLUTE 2.12 10/3/uL (0.67-4.30); MEAN CORPUS HGB CONC 33.8 g/dL (32.0-36.0); MEAN CORPUSCULAR HEMOGLOB 27.2 pg (26.0-34.0); MEAN CORPUSCULAR VOLUME 80.3 fL (80-100); MEAN PLATELET VOLUME 8.2 fL (9.2-13.0); MONOCYTES 7.8 %; MONOCYTES ABSOLUTE 1.16 10/3/uL (0.21-1.20); NEUTROPHILS 77.2 %; NEUTROPHILS ABSOLUTE 11.41 10/3/uL (2.02-8.40); RBC DISTRIBUTION WIDTH 15.1 % (12.0-16.0); RED CELL COUNT 4.27 10/6/uL (4.0-5.6); WHITE BLOOD CELLS 14.8 10/3/uL (4.5-10.5)
[2017-02-09 07:25] LABS: HEMATOCRIT 34.3 % (36.0-48.0); MANUAL DIFF NO %; PLATELET COUNT 447 10/3/uL (150-400)
[2017-02-09 07:34] LABS: BUN (BLOOD UREA NITROGEN) 28 MG/DL (6-23); CALCIUM, SERUM 8.5 MG/DL (8.5-10.4); CHLORIDE, SERUM 98 MMOL/L (96-112); CO2 (CARBON DIOXIDE) 23 MMOL/L (24-34); CREATININE 0.98 MG/DL (0.55-1.02); GFR AFRICAN AMERICAN 73 ML/MIN (>=60); GFR NON AFRICAN AMERICAN 63 ML/MIN (>=60); GLUCOSE, SERUM 130 MG/DL (60-99); POTASSIUM, SERUM 4.8 MMOL/L (3.5-5.3); SODIUM, SERUM 131 MMOL/L (135-148)
[2017-02-09 10:43] LABS: CALCIUM, SERUM 8.9 MG/DL (8.5-10.4); CHLORIDE, SERUM 100 MMOL/L (96-112); CO2 (CARBON DIOXIDE) 21 MMOL/L (24-34); CREATININE 0.93 MG/DL (0.55-1.02); GFR AFRICAN AMERICAN 77 ML/MIN (>=60); GFR NON AFRICAN AMERICAN 67 ML/MIN (>=60); GLUCOSE, SERUM 151 MG/DL (60-99); POTASSIUM, SERUM 4.2 MMOL/L (3.5-5.3); SODIUM, SERUM 132 MMOL/L (135-148)
[2017-02-09 10:44] LABS: BUN (BLOOD UREA NITROGEN) 23 MG/DL (6-23)
[2017-02-10 04:59] LABS: HEMATOCRIT 36.2 % (36.0-48.0); MEAN CORPUS HGB CONC 33.1 g/dL (32.0-36.0); MEAN CORPUSCULAR HEMOGLOB 27.5 pg (26.0-34.0); MEAN PLATELET VOLUME 8.1 fL (9.2-13.0); PLATELET COUNT 421 10/3/uL (150-400); RBC DISTRIBUTION WIDTH 15.3 % (12.0-16.0); RED CELL COUNT 4.37 10/6/uL (4.0-5.6); WHITE BLOOD CELLS 10.6 10/3/uL (4.5-10.5)
[2017-02-10 05:00] LABS: MANUAL DIFF YES %; MEAN CORPUSCULAR VOLUME 82.8 fL (80-100)
[2017-02-10 05:11] LABS: CALCIUM, SERUM 8.9 MG/DL (8.5-10.4); CHLORIDE, SERUM 104 MMOL/L (96-112); CO2 (CARBON DIOXIDE) 25 MMOL/L (24-34); GFR AFRICAN AMERICAN 109 ML/MIN (>=60); GFR NON AFRICAN AMERICAN 94 ML/MIN (>=60); POTASSIUM, SERUM 4.2 MMOL/L (3.5-5.3); SODIUM, SERUM 137 MMOL/L (135-148)
[2017-02-10 05:14] LABS: BUN (BLOOD UREA NITROGEN) 14 MG/DL (6-23); GLUCOSE, SERUM 78 MG/DL (60-99)
[2017-02-10 05:29] LABS: LYMPHOCYTES 41 %; LYMPHOCYTES ABSOLUTE (CALC) 4.35 10/3/uL (0.67-4.30); MONOCYTES 3 %; MONOCYTES ABSOLUTE (CALC) 0.32 10/3/uL (0.21-1.20); NEUTROPHILS ABSOLUTE (CALC) 5.94 10/3/uL (2.02-8.40); PLATELET ESTIMATE SLT INC (ADEQUATE); RBC MORPHOLOGY NORM (NORMAL); SEGMENTED NEUTROPHIL (0) 56 %; TOTAL NUCLEATED CELLS 100
[2017-02-11 05:49] LABS: BASOPHILS 0 %; EOSINOPHILS 0.6 %; EOSINOPHILS ABSOLUTE 0.06 10/3/uL (0.0-0.53); HEMOGLOBIN 10.9 g/dL (12.0-16.0); IMMATURE GRANULOCYTES 0.6 %; IMMATURE GRANULOCYTES ABSOLUTE 0.06 10/3/uL (0.0-0.11); LYMPHOCYTES 37.2 %; LYMPHOCYTES ABSOLUTE 3.54 10/3/uL (0.67-4.30); MEAN CORPUSCULAR VOLUME 81.9 fL (80-100); MEAN PLATELET VOLUME 8.5 fL (9.2-13.0); MONOCYTES 7.7 %; MONOCYTES ABSOLUTE 0.73 10/3/uL (0.21-1.20); NEUTROPHILS 53.9 %; NEUTROPHILS ABSOLUTE 5.12 10/3/uL (2.02-8.40); PLATELET COUNT 392 10/3/uL (150-400); RBC DISTRIBUTION WIDTH 15.2 % (12.0-16.0); RED CELL COUNT 4.03 10/6/uL (4.0-5.6); WHITE BLOOD CELLS 9.5 10/3/uL (4.5-10.5)
[2017-02-11 05:55] LABS: MANUAL DIFF NO %
[2017-02-11 05:59] LABS: BUN (BLOOD UREA NITROGEN) 13 MG/DL (6-23); CALCIUM, SERUM 8.4 MG/DL (8.5-10.4); CHLORIDE, SERUM 101 MMOL/L (96-112); CO2 (CARBON DIOXIDE) 24 MMOL/L (24-34); CREATININE 0.69 MG/DL (0.55-1.02); GFR AFRICAN AMERICAN 110 ML/MIN (>=60); GFR NON AFRICAN AMERICAN 95 ML/MIN (>=60); GLUCOSE, SERUM 79 MG/DL (60-99); POTASSIUM, SERUM 4.2 MMOL/L (3.5-5.3); SODIUM, SERUM 135 MMOL/L (135-148)
[2017-02-11 06:17] LABS: PREALBUMIN 25.2 MG/DL (17.0-43.0)
[2017-02-11 14:15] LABS: PHOSPHORUS, SERUM 2.2 MG/DL (2.5-4.5)
[2017-02-12 07:04] LABS: BASOPHILS 0 %; EOSINOPHILS 0.6 %; EOSINOPHILS ABSOLUTE 0.06 10/3/uL (0.0-0.53); HEMATOCRIT 31.3 % (36.0-48.0); HEMOGLOBIN 10.5 g/dL (12.0-16.0); IMMATURE GRANULOCYTES 0.6 %; IMMATURE GRANULOCYTES ABSOLUTE 0.06 10/3/uL (0.0-0.11); LYMPHOCYTES 35.2 %; MANUAL DIFF NO %; MEAN CORPUS HGB CONC 33.5 g/dL (32.0-36.0); MEAN CORPUSCULAR HEMOGLOB 27.6 pg (26.0-34.0); MEAN CORPUSCULAR VOLUME 82.4 fL (80-100); MEAN PLATELET VOLUME 8.2 fL (9.2-13.0); MONOCYTES 6.6 %; MONOCYTES ABSOLUTE 0.66 10/3/uL (0.21-1.20); NEUTROPHILS ABSOLUTE 5.66 10/3/uL (2.02-8.40); PLATELET COUNT 370 10/3/uL (150-400); RBC DISTRIBUTION WIDTH 15.4 % (12.0-16.0); WHITE BLOOD CELLS 9.9 10/3/uL (4.5-10.5)
[2017-02-12 07:16] LABS: BUN (BLOOD UREA NITROGEN) 16 MG/DL (6-23); CALCIUM, SERUM 7.9 MG/DL (8.5-10.4); CHLORIDE, SERUM 102 MMOL/L (96-112); CO2 (CARBON DIOXIDE) 27 MMOL/L (24-34); CREATININE 0.65 MG/DL (0.55-1.02); GFR AFRICAN AMERICAN 112 ML/MIN (>=60); GFR NON AFRICAN AMERICAN 96 ML/MIN (>=60); GLUCOSE, SERUM 85 MG/DL (60-99); PHOSPHORUS, SERUM 2.6 MG/DL (2.5-4.5); SGOT(AST) 13 U/L (5-40); SGPT(ALT) 22 U/L (5-65); SODIUM, SERUM 136 MMOL/L (135-148); TOTAL BILIRUBIN 0.4 MG/DL (0-1.2); TRIGLYCERIDE 159 MG/DL (< 150)
[2017-02-12 07:17] LABS: A/G RATIO 0.7 (0.7-1.9); ALBUMIN 2.3 G/DL (3.5-5.0); ALKALINE PHOSPHATASE 69 U/L (45-117); GLOBULIN 3.1 G/DL (2.5-4.1); TOTAL PROTEIN 5.4 G/DL (6.0-8.5)
[2017-02-13 06:01] LABS: CALCIUM, SERUM 8.1 MG/DL (8.5-10.4); CHLORIDE, SERUM 107 MMOL/L (96-112); CO2 (CARBON DIOXIDE) 23 MMOL/L (24-34); CREATININE 0.52 MG/DL (0.55-1.02); GFR AFRICAN AMERICAN 120 ML/MIN (>=60); GFR NON AFRICAN AMERICAN 104 ML/MIN (>=60); GLUCOSE, SERUM 87 MG/DL (60-99); PHOSPHORUS, SERUM 2.3 MG/DL (2.5-4.5); POTASSIUM, SERUM 3.7 MMOL/L (3.5-5.3); SODIUM, SERUM 139 MMOL/L (135-148)
[2017-02-13 06:04] LABS: BUN (BLOOD UREA NITROGEN) 20 MG/DL (6-23)
[2017-02-13 06:11] LABS: BASOPHILS 0.1 %; BASOPHILS ABSOLUTE 0.01 10/3/uL (0.0-0.16); EOSINOPHILS 0.7 %; EOSINOPHILS ABSOLUTE 0.06 10/3/uL (0.0-0.53); HEMATOCRIT 33.6 % (36.0-48.0); IMMATURE GRANULOCYTES 0.6 %; IMMATURE GRANULOCYTES ABSOLUTE 0.05 10/3/uL (0.0-0.11); LYMPHOCYTES 37.4 %; LYMPHOCYTES ABSOLUTE 3.23 10/3/uL (0.67-4.30); MEAN CORPUS HGB CONC 32.7 g/dL (32.0-36.0); MEAN CORPUSCULAR HEMOGLOB 27.1 pg (26.0-34.0); MEAN CORPUSCULAR VOLUME 82.8 fL (80-100); MEAN PLATELET VOLUME 8.1 fL (9.2-13.0); MONOCYTES 7.4 %; MONOCYTES ABSOLUTE 0.64 10/3/uL (0.21-1.20); NEUTROPHILS 53.8 %; NEUTROPHILS ABSOLUTE 4.64 10/3/uL (2.02-8.40); PLATELET COUNT 349 10/3/uL (150-400); RBC DISTRIBUTION WIDTH 15.2 % (12.0-16.0); RED CELL COUNT 4.06 10/6/uL (4.0-5.6); WHITE BLOOD CELLS 8.6 10/3/uL (4.5-10.5)
[2017-02-13 06:12] LABS: MANUAL DIFF NO %
[2017-02-14 06:46] LABS: BUN (BLOOD UREA NITROGEN) 23 MG/DL (6-23); CALCIUM, SERUM 8.4 MG/DL (8.5-10.4); CHLORIDE, SERUM 107 MMOL/L (96-112); CO2 (CARBON DIOXIDE) 26 MMOL/L (24-34); CREATININE 0.46 MG/DL (0.55-1.02); GFR AFRICAN AMERICAN 125 ML/MIN (>=60); GFR NON AFRICAN AMERICAN 108 ML/MIN (>=60); PHOSPHORUS, SERUM 2.4 MG/DL (2.5-4.5); POTASSIUM, SERUM 3.9 MMOL/L (3.5-5.3); SODIUM, SERUM 140 MMOL/L (135-148)
[2017-02-14 06:47] LABS: GLUCOSE, SERUM 110 MG/DL (60-99)
[2017-02-15 06:07] LABS: BUN (BLOOD UREA NITROGEN) 26 MG/DL (6-23); CALCIUM, SERUM 7.7 MG/DL (8.5-10.4); CHLORIDE, SERUM 108 MMOL/L (96-112); CO2 (CARBON DIOXIDE) 22 MMOL/L (24-34); CREATININE 0.42 MG/DL (0.55-1.02); GFR AFRICAN AMERICAN 129 ML/MIN (>=60); GFR NON AFRICAN AMERICAN 111 ML/MIN (>=60); PHOSPHORUS, SERUM 2.8 MG/DL (2.5-4.5); POTASSIUM, SERUM 3.5 MMOL/L (3.5-5.3); SODIUM, SERUM 140 MMOL/L (135-148)
[2017-02-15 06:13] LABS: GLUCOSE, SERUM 134 MG/DL (60-99)
[2017-02-16 05:41] LABS: A/G RATIO 0.8 (0.7-1.9); ALKALINE PHOSPHATASE 60 U/L (45-117); BUN (BLOOD UREA NITROGEN) 29 MG/DL (6-23); CALCIUM, SERUM 8.1 MG/DL (8.5-10.4); CHLORIDE, SERUM 105 MMOL/L (96-112); CO2 (CARBON DIOXIDE) 24 MMOL/L (24-34); CREATININE 0.74 MG/DL (0.55-1.02); GFR AFRICAN AMERICAN 102 ML/MIN (>=60); GFR NON AFRICAN AMERICAN 88 ML/MIN (>=60); PHOSPHORUS, SERUM 3.3 MG/DL (2.5-4.5); SGOT(AST) 29 U/L (5-40); SGPT(ALT) 45 U/L (5-65); SODIUM, SERUM 137 MMOL/L (135-148); TOTAL BILIRUBIN 0.3 MG/DL (0-1.2); TOTAL PROTEIN 4.4 G/DL (6.0-8.5)
[2017-02-16 05:46] LABS: GLOBULIN 2.4 G/DL (2.5-4.1); GLUCOSE, SERUM 197 MG/DL (60-99); POTASSIUM, SERUM 4.4 MMOL/L (3.5-5.3)
[2017-02-16 08:14] LABS: MEAN CORPUS HGB CONC 33.8 g/dL (32.0-36.0); MEAN CORPUSCULAR HEMOGLOB 28.4 pg (26.0-34.0); MEAN CORPUSCULAR VOLUME 83.9 fL (80-100); MEAN PLATELET VOLUME 8.5 fL (9.2-13.0); PLATELET COUNT 268 10/3/uL (150-400)
[2017-02-16 08:15] LABS: HEMATOCRIT 21.9 % (36.0-48.0); HEMOGLOBIN 7.4 g/dL (12.0-16.0); MANUAL DIFF YES %; RED CELL COUNT 2.61 10/6/uL (4.0-5.6); WHITE BLOOD CELLS 14.4 10/3/uL (4.5-10.5)
[2017-02-16 08:35] LABS: BAND NEUTROPHILS 13 %; LYMPHOCYTES 13 %; LYMPHOCYTES ABSOLUTE (CALC) 1.87 10/3/uL (0.67-4.30); MONOCYTES 4 %; MONOCYTES ABSOLUTE (CALC) 0.58 10/3/uL (0.21-1.20); NEUTROPHILS ABSOLUTE (CALC) 11.95 10/3/uL (2.02-8.40); PLATELET ESTIMATE ADQ (ADEQUATE); RBC MORPHOLOGY NORM (NORMAL); SEGMENTED NEUTROPHIL (0) 70 %; TOTAL NUCLEATED CELLS 100
[2017-02-17 07:26] LABS: BASOPHILS 0.2 %; BASOPHILS ABSOLUTE 0.02 10/3/uL (0.0-0.16); EOSINOPHILS 1.5 %; EOSINOPHILS ABSOLUTE 0.16 10/3/uL (0.0-0.53); IMMATURE GRANULOCYTES 0.8 %; IMMATURE GRANULOCYTES ABSOLUTE 0.08 10/3/uL (0.0-0.11); LYMPHOCYTES 17.4 %; LYMPHOCYTES ABSOLUTE 1.85 10/3/uL (0.67-4.30); MEAN CORPUS HGB CONC 33.2 g/dL (32.0-36.0); MEAN CORPUSCULAR HEMOGLOB 27.7 pg (26.0-34.0); MEAN CORPUSCULAR VOLUME 83.5 fL (80-100); MEAN PLATELET VOLUME 8.5 fL (9.2-13.0); MONOCYTES 6.8 %; MONOCYTES ABSOLUTE 0.72 10/3/uL (0.21-1.20); NEUTROPHILS 73.3 %; NEUTROPHILS ABSOLUTE 7.81 10/3/uL (2.02-8.40); PLATELET COUNT 246 10/3/uL (150-400); RBC DISTRIBUTION WIDTH 16.2 % (12.0-16.0); RED CELL COUNT 2.31 10/6/uL (4.0-5.6); WHITE BLOOD CELLS 10.6 10/3/uL (4.5-10.5)
[2017-02-17 07:27] LABS: HEMATOCRIT 19.3 % (36.0-48.0); HEMOGLOBIN 6.4 g/dL (12.0-16.0); MANUAL DIFF NO %
[2017-02-17 07:52] LABS: A/G RATIO 0.8 (0.7-1.9); ALBUMIN 1.9 G/DL (3.5-5.0); ALKALINE PHOSPHATASE 64 U/L (45-117); BUN (BLOOD UREA NITROGEN) 20 MG/DL (6-23); CALCIUM, SERUM 8.2 MG/DL (8.5-10.4); CHLORIDE, SERUM 106 MMOL/L (96-112); CO2 (CARBON DIOXIDE) 25 MMOL/L (24-34); CREATININE 0.42 MG/DL (0.55-1.02); GFR AFRICAN AMERICAN 129 ML/MIN (>=60); GFR NON AFRICAN AMERICAN 111 ML/MIN (>=60); GLOBULIN 2.5 G/DL (2.5-4.1); GLUCOSE, SERUM 151 MG/DL (60-99); PHOSPHORUS, SERUM 1.6 MG/DL (2.5-4.5); POTASSIUM, SERUM 3.2 MMOL/L (3.5-5.3); SGOT(AST) 18 U/L (5-40); SGPT(ALT) 34 U/L (5-65); SODIUM, SERUM 139 MMOL/L (135-148); TOTAL BILIRUBIN 0.2 MG/DL (0-1.2); TOTAL PROTEIN 4.4 G/DL (6.0-8.5)
[2017-02-18 06:34] LABS: BASOPHILS 0.2 %; BASOPHILS ABSOLUTE 0.02 10/3/uL (0.0-0.16); EOSINOPHILS 1.8 %; EOSINOPHILS ABSOLUTE 0.16 10/3/uL (0.0-0.53); HEMATOCRIT 24.3 % (36.0-48.0); HEMOGLOBIN 8.2 g/dL (12.0-16.0); IMMATURE GRANULOCYTES 0.9 %; IMMATURE GRANULOCYTES ABSOLUTE 0.08 10/3/uL (0.0-0.11); LYMPHOCYTES 24.4 %; LYMPHOCYTES ABSOLUTE 2.17 10/3/uL (0.67-4.30); MEAN CORPUS HGB CONC 33.7 g/dL (32.0-36.0); MEAN CORPUSCULAR VOLUME 82.9 fL (80-100); MEAN PLATELET VOLUME 8.6 fL (9.2-13.0); MONOCYTES 6.6 %; MONOCYTES ABSOLUTE 0.59 10/3/uL (0.21-1.20); NEUTROPHILS 66.1 %; NEUTROPHILS ABSOLUTE 5.86 10/3/uL (2.02-8.40); PLATELET COUNT 213 10/3/uL (150-400); RBC DISTRIBUTION WIDTH 15.7 % (12.0-16.0); RED CELL COUNT 2.93 10/6/uL (4.0-5.6); WHITE BLOOD CELLS 8.9 10/3/uL (4.5-10.5)
[2017-02-18 06:35] LABS: MANUAL DIFF NO %
[2017-02-18 06:47] LABS: A/G RATIO 0.6 (0.7-1.9); ALBUMIN 1.7 G/DL (3.5-5.0); ALKALINE PHOSPHATASE 65 U/L (45-117); BUN (BLOOD UREA NITROGEN) 18 MG/DL (6-23); CALCIUM, SERUM 8.2 MG/DL (8.5-10.4); CHLORIDE, SERUM 109 MMOL/L (96-112); CO2 (CARBON DIOXIDE) 22 MMOL/L (24-34); CREATININE 0.33 MG/DL (0.55-1.02); GFR AFRICAN AMERICAN 140 ML/MIN (>=60); GFR NON AFRICAN AMERICAN 121 ML/MIN (>=60); GLOBULIN 2.8 G/DL (2.5-4.1); GLUCOSE, SERUM 135 MG/DL (60-99); POTASSIUM, SERUM 3.6 MMOL/L (3.5-5.3); SGOT(AST) 13 U/L (5-40); SGPT(ALT) 24 U/L (5-65); SODIUM, SERUM 141 MMOL/L (135-148); TOTAL BILIRUBIN 0.3 MG/DL (0-1.2); TOTAL PROTEIN 4.5 G/DL (6.0-8.5)
[2017-02-18 06:48] LABS: PHOSPHORUS, SERUM 2.1 MG/DL (2.5-4.5)
[2017-02-19 06:52] LABS: BASOPHILS 0.4 %; BASOPHILS ABSOLUTE 0.03 10/3/uL (0.0-0.16); EOSINOPHILS 2.6 %; EOSINOPHILS ABSOLUTE 0.22 10/3/uL (0.0-0.53); HEMOGLOBIN 9.1 g/dL (12.0-16.0); IMMATURE GRANULOCYTES 1.1 %; IMMATURE GRANULOCYTES ABSOLUTE 0.09 10/3/uL (0.0-0.11); LYMPHOCYTES 32.8 %; LYMPHOCYTES ABSOLUTE 2.79 10/3/uL (0.67-4.30); MEAN CORPUS HGB CONC 33.5 g/dL (32.0-36.0); MEAN CORPUSCULAR VOLUME 83.7 fL (80-100); MEAN PLATELET VOLUME 8.5 fL (9.2-13.0); MONOCYTES 6.6 %; MONOCYTES ABSOLUTE 0.56 10/3/uL (0.21-1.20); NEUTROPHILS 56.5 %; NEUTROPHILS ABSOLUTE 4.82 10/3/uL (2.02-8.40); PLATELET COUNT 246 10/3/uL (150-400); RBC DISTRIBUTION WIDTH 16.3 % (12.0-16.0); RED CELL COUNT 3.25 10/6/uL (4.0-5.6); WHITE BLOOD CELLS 8.5 10/3/uL (4.5-10.5)
[2017-02-19 06:54] LABS: HEMATOCRIT 27.2 % (36.0-48.0); MANUAL DIFF NO %
[2017-02-19 07:02] LABS: CALCIUM, SERUM 8.6 MG/DL (8.5-10.4); CHLORIDE, SERUM 108 MMOL/L (96-112); CO2 (CARBON DIOXIDE) 23 MMOL/L (24-34); CREATININE 0.49 MG/DL (0.55-1.02); GFR AFRICAN AMERICAN 123 ML/MIN (>=60); GFR NON AFRICAN AMERICAN 106 ML/MIN (>=60); GLUCOSE, SERUM 109 MG/DL (60-99); POTASSIUM, SERUM 3.6 MMOL/L (3.5-5.3); SODIUM, SERUM 142 MMOL/L (135-148)
[2017-02-19 07:06] LABS: BUN (BLOOD UREA NITROGEN) 12 MG/DL (6-23); PHOSPHORUS, SERUM 2.8 MG/DL (2.5-4.5)
[2017-02-19] MEDS ORDERED: NORCO1 TA1 PO (12:46)
[2017-02-19] MEDS ORDERED: MIRALAX POWDER1 PKT PO (12:47)
[2017-06-07] MEDS ORDERED: PRIN20 PO (12:56)
[2017-06-07] MEDS ORDERED: HYGROTON 25 MG25 MG PO (12:57)
[2017-06-07] MEDS ORDERED: VITD PO (12:58)
== END 2017-02-19 16:23 | disposition home or self-care (01) | DRG 330 ==
LOC: ER 21:32 → 4SO 02-09 01:45
PROVIDERS: Emergency Medicine; Hospitalist; Internal Medicine; Nurse Practitioner Family; Specialist; Student in an Organized Health Care Education/Training Program
DX: K50.012 Crohn's disease of small intestine with intestinal obstruction (principal); K56.5 Intestinal adhesions [bands] with obstruction (postinfection); N17.9 Acute kidney failure, unspecified; E87.1 Hypo-osmolality and hyponatremia; E87.5 Hyperkalemia; E78.5 Hyperlipidemia, unspecified; E11.9 Type 2 diabetes mellitus without complications; D63.8 Anemia in other chronic diseases classified elsewhere; K50.00 Crohn's disease of small intestine without complications; E86.0 Dehydration; Z88.2 Allergy status to sulfonamides; Z88.3 Allergy status to other anti-infective agents; Z88.8 Allergy status to other drugs, medicaments and biological substances; Z90.49 Acquired absence of other specified parts of digestive tract; Z79.82 Long term (current) use of aspirin; Z53.31 Laparoscopic surgical procedure converted to open procedure
CPT/HCPCS: 36415; 36569; 71010; 74000; 74020; 74177; 80048; 80053; 80069; 81001; 82330; 82962; 83735; 84100; 84134; 84478; 85025; 86850; 86900; 86901; 86920; 87045; 87046; 87046-59; 87328; 87329; 87493; 87493-59; 87899; 87899-59; 88307; 89055; 93005; 96374; 96375; 99285; A9270-GY; C1751; C9113; J0610; J0690; J1885; J2250; J2270; J2405; J2710; J3010; J3475; P9016; Q9967